=== PATIENT | female | born 1990 | race Caucasian/White ===

== ENCOUNTER 2022-07-27 06:34 | Inpatient (IN) ==
[2022-07-27] MEDS ORDERED: PITOCIN ONE (06:36)
[2022-07-27] MEDS ORDERED: BETADINE SOLN ONE (06:36)
[2022-07-27] MEDS ORDERED: D5 1/2 NS 1,000 ML 1,000 ML IV ONE (06:36)
[2022-07-27] MEDS ORDERED: D5 1/2 NS 1,000 mL + PITOCIN 20 UNITS/L IV 20 UNITS/1,000 ML BAG IV ONE (06:37)
[2022-07-27] MEDS ORDERED: D5 LR + PITOCIN 10 UNITS/L 10 UNITS/1,000 ML BAG IV ONE (06:37)
[2022-07-27] MEDS ORDERED: PITOCIN IVP ONE (06:44)
[2022-07-27] MEDS ORDERED: D5 LR + PITOCIN 10 UNITS/L 10 UNITS/1,000 ML BAG IV PRN (06:44)
[2022-07-27] MEDS ORDERED: STADOL INJ IVP PRN (06:44)
[2022-07-27] MEDS ORDERED: D5 1/2 NS 1,000 ML 1,000 ML IV SCH (06:44)
[2022-07-27] MEDS ORDERED: NUBAIN INJ 20 MG AMP IVP PRN (06:44)
[2022-07-27] MEDS ORDERED: ZOFRAN INJ 4 MG VIAL IVP PRN (06:44)
[2022-07-27] MEDS ORDERED: REGLAN INJ 10 MG VIAL IVP PRN (06:44)
[2022-07-27 07:23] LABS: BILIRUBIN,URINE NEGATIVE (NEGATIVE); BLOOD/HEMOGLOBIN,URINE NEGATIVE (NEGATIVE); GLUCOSE, URINE NEGATIVE (NEGATIVE); KETONES,URINE NEGATIVE (NEGATIVE); LEUKOCYTE ESTERASE ,URINE NEGATIVE (NEGATIVE); NITRITES,URINE NEGATIVE (NEGATIVE); PROTEIN,URINE 1+ (NEGATIVE); UROBILINOGEN,URINE NORMAL (NORMAL)
[2022-07-27 07:24] LABS: BASOPHILS % (AUTO) 0.4 % (0.2-1.0); EOSINOPHILS # (AUTO) 0.1 x10^3/uL (0.0-0.2); EOSINOPHILS % (AUTO) 1.4 % (0.9-2.9); HEMATOCRIT 31.9 % (36.0-47.0); HEMOGLOBIN 11.1 g/dL (12.0-16.0); LYMPHOCYTES # (AUTO) 2.4 X10^3/uL (1.3-2.9); LYMPHOCYTES % (AUTO) 27.5 % (21.0-51.0); MEAN CORPUSCULAR HEMOGLOBIN 31.2 pg (27.0-34.0); MEAN CORPUSCULAR HGB CONC 34.6 g/dL (33.0-35.0); MEAN CORPUSCULAR VOLUME 90.2 fL (80.0-100.0); MONOCYTES # (AUTO) 0.7 x10^3/uL (0.3-0.8); MONOCYTES % (AUTO) 7.5 % (0.0-13.0); NEUTROPHILS # (AUTO) 5.5 x10^3/uL (2.2-4.8); NEUTROPHILS % (AUTO) 63.2 % (42.0-75.0); PLATELET COUNT 232 X10^3/uL (150.0-450.0); RED BLOOD COUNT 3.54 X10^6/uL (3.5-5.4); RED CELL DISTRIBUTION WIDTH 13.9 % (11.6-16.5); WHITE BLOOD COUNT 8.7 X10^3/uL (3.6-10.0)
[2022-07-27 07:26] LABS: BLOOD UREA NITROGEN 13 mg/dL (7-18); CALCIUM 8.1 mg/dL (8.5-10.1); CARBON DIOXIDE 22.2 mmol/L (21-32); CHLORIDE 104 mmol/L (98-107); CREATININE 0.48 mg/dL (0.55-1.02); GLUCOSE 84 mg/dL (65-99); POTASSIUM 3.6 mmol/L (3.5-5.1); SODIUM 137 mmol/L (136-145); eGFR NON BLACK RACES > 60 (>60)
--- NOTE | 2022-07-27 07:27 | DR.OB ---
OB Quick Note - Assessment/Plan Assessment/Plan: L&D 07/27/22 at 7:15am S-No complaint. O-Afebrile,VSS DDV=780 with good LTV, +accel, no decel. CTX=none CVX=3cm/50%/-1/VTX AROM with clear fluid. IUPC and FSE placed. A-IUP at 39 2/7 weeks for induction P-Begin pitocin induction F/U labs Anticipate
[2022-07-27 07:50] LABS: APPEARANCE,URINE CLEAR (CLEAR); COLOR,URINE YELLOW (YELLOW)
[2022-07-27 07:51] LABS: BACTERIA,URINE NEGATIVE /HPF (NEGATIVE); RBC,URINE NONE SEEN /HPF (0-3); SQUAMOUS EPITHELIAL CELL,UR FEW /HPF (NEGATIVE)
[2022-07-27] MEDS ORDERED: FENTANYL VIAL INJ 100 mcg ONE (09:03)
[2022-07-27] MEDS ORDERED: LR 1,000 ML IV 1,000 ML IV ONE (09:03)
[2022-07-27] MEDS ORDERED: NAROPIN EPIDURAL 0.2% 100 ML ONE (09:03)
[2022-07-27] MEDS ORDERED: ZOFRAN INJ 4 MG VIAL ONE (09:26)
[2022-07-27] MEDS: D5 1/2 NS 1,000 ML 1,000 ML with PITOCIN 20 UNITS IV SCH ×4 (12:00→23:52)
[2022-07-27] MEDS ORDERED: AMBIEN PO PRN (12:22)
[2022-07-27] MEDS ORDERED: MILK OF MAGNESIA PO PRN (12:22)
[2022-07-27] MEDS ORDERED: ADACEL or BOOSTRIX TDaP VACCINE IM ONE (12:22)
[2022-07-27] MEDS ORDERED: DERMOPLAST PAIN RELIEF SPRAY TOP PRN (12:22)
[2022-07-27] MEDS ORDERED: LANOLIN TOP PRN (15:51)
--- NOTE | 2022-07-27 16:10 | DR.OB ---
OB Quick Note - Assessment/Plan Assessment/Plan: Delivery Note PROGRESSIVE CARE UNIT REGISTERED NURSE 07/27/22 at 10:55am Patient complete and pushing. Head delivered over intact perineum. No nuchal cord. Nose and mouth bulb suctioned. Body delivered over intact perineum. Cord clamped x 2 and cut. handed to attendant. Cord sent for gases. Placenta delivered spontaneously / intact / 3 vessel cord. No CVX / vaginal / perineal tears. Viable female infant delivered by , wt=6'8" and 8/9, stable to NBN. Mother stable to RR. [id number].
[2022-07-27] MEDS: MOTRIN TAB 800 MG PO PRN (19:31)
[2022-07-28] MEDS: MOTRIN TAB 800 MG PO PRN (05:06)
[2022-07-28] MEDS: D5 1/2 NS 1,000 ML 1,000 ML with PITOCIN 20 UNITS IV SCH ×2 (05:07)
[2022-07-28 05:12] LABS: HEMATOCRIT 29.9 % (36.0-47.0); HEMOGLOBIN 10.3 g/dL (12.0-16.0)
[2022-07-28] MEDS ORDERED: DEPO-PROVERA CONTRACEPTIVE INJ IM ONE (07:18)
[2022-07-28] MEDS ORDERED: PROTONIX TAB 40 MG PO SCH (09:00)
[2022-07-28] MEDS ORDERED: PRENATAL PLUS PO SCH (09:00)
[2022-07-28] MEDS ORDERED: ADACEL or BOOSTRIX TDaP VACCINE IM ONE (10:00)
[2022-07-28 15:29] VITALS: BP 129/83
== END 2022-07-28 02:20 | disposition home or self-care (01) | DRG 807 ==
LOC: LD 06:34 → MED/SURG 12:28
PROVIDERS: ADMIT Specialist; ATTEND Specialist
DX: Z3A.39 39 weeks gestation of pregnancy; K21.9 Gastro-esophageal reflux disease without esophagitis; O99.613 Diseases of the digestive system complicating pregnancy, third trimester; Z37.0 Single live birth